=== PATIENT | male | born 1950 | race Caucasian/White ===

== ENCOUNTER 2019-10-06 12:12 | Emergency (ER) | payer MEDICARE, OTHER ==
[~2019-10-06] VITALS: Ht 185.4 cm; Wt 113.4 kg
--- OUTSIDE RECORDS SUMMARY | 2019-10-06 12:15 | XMS REPORT | Summary of Care ---
Author Author Tiffany Bunch M.A. Unknown Address Unknown Phone Unavailable Care Team Providers Care Kiss Setter Hand Name Role Phone LEVY RUTLEDGE M.D. Unavailable Unavailable ANGELA BAY MD Unavailable Unavailable Unavailable Unavailable Functional Status Name Dates Details Functional status health issues are not documented Status: Name Dates Details Cognitive status health issues are not documented Status: Problems Name Dates Details Hypertension (401.9, I10) Status: Active Limb swelling (729.81, M79.89) Status: Active Pain in both lower extremities (729.5, M79.604) Status: Active Medications Name Dates Details EpiPen 2-Mohinder NUZHAT Active Atorvastatin Calcium 40 MG Oral Tablet * Refills: 0 Active Pantoprazole Sodium 40 MG Oral Tablet Delayed Release * Refills: 0 Active valACYclovir HCl - 1 GM Oral Tablet TAKE 1 TABLET EVERY 12 HOURS DAILY. * Refills: 0 * Start : 12-Jun-2018 Active Probiotic Oral Capsule USE DIRECTED. * Refills: 0 * Start : 12-Jun-2018 Active Fexofenadine HCl - 60 MG Oral Tablet TAKE 1 TABLET DAILY. * Refills: 0 * Start : 12-Jun-2018 Active Aspirin 81 MG Oral Tablet Delayed Release TAKE 1 TABLET BY MOUTH EVERY DAY * Quantity: 90 Refills: 1 * Start : 12-Jun-2018 Active raNITIdine HCl - 150 MG Oral Capsule TAKE 1 CAPSULE EVERY 12 HOURS DAILY. * Quantity: 180 Refills: 3 * Start : 12-Jun-2018 Active Allergies and Adverse Reactions Name Dates Details Benadryl TABS (Allergy) Status: Active Past Medical History Name Dates Details Hypertension (401.9, I10) Status: Active History of gastroesophageal reflux (GERD) (V12.79, Z87.19) Status: Resolved Procedures Procedure Dates Details History of Emergency Tracheostomy Completed History of Gallbladder Surgery Completed History of Knee Surgery Left Completed History of Knee Surgery Right Completed History of Cath Stent Placement Completed Immunization Name Dates Details Immunizations not documented Family History Name Dates Details Family history of Cancer Comments: Family History Status: Active Social History Name Dates Details - Status: Name Dates Details Former smoker Vital Signs Date Test Result Details No Known Vitals to report Results Date Description Value Details Results not documented Plan of Care Name Dates Details Planned Observations Planned Goals not documented Planned Encounters Appointment; LEVY RUTLEDGE M.D. On: 12-Apr-2019 15:00 Interventions Provided Plan* CAD * - He refers prior stress test 2016 which apparently was negative * - Get records * CVI * - CEAP 4, venous US shows significant reflux left and right GSV/SSV, however symptoms are worse in left leg. HE has been wearing compression stockings with minimal improvement * - Willl schedule endovenous RFA starting left GSV, then left SSV. Then will schedule right GSV and finally right SSV. * - Risks, benefits and alternatives explained to the patient. He voices understanding and agrees to proceed. * - Continue compression stockings * Schedule procedure as above Discussion/Summary* Reviewed and discussed clinical cardiac findings and medications. * Venous US and echocardiogram results reviewed and discussed. Instructions Name Dates Details Instructions not documented Encounters Appointment; WANG DOLAN M.D. Encounter Diagnosis: Problem not documented On: 06-May-2017 14:45 Appointment; WANG DOLAN M.D. Encounter Diagnosis: Problem not documented On: 20-May-2017 15:30 Appointment; WANG DOLAN M.D. Encounter Diagnosis: Problem not documented On: 08-Sep-2017 15:15 Appointment; EARNESTINE DARNELL M.D. Encounter Diagnosis: Problem not documented On: 12-Jun-2018 14:30 Appointment; SE, ECHO Encounter Diagnosis: Problem not documented On: 14-Jun-2018 11:45 Appointment; SE, VENOUS Encounter Diagnosis: Problem not documented On: 14-Jun-2018 14:00 Appointment; EARNESTINE DARNELL M.D. Encounter Diagnosis: Problem not documented On: 26-Jun-2018 15:00 Appointment; EARNESTINE DARNELL M.D. Encounter Diagnosis: Problem not documented On: 03-Jul-2018 14:00 Appointment; SE, VENOUS Encounter Diagnosis: Problem not documented On: 14-Jul-2018 14:00 Appointment; SE, VENOUS Encounter Diagnosis: Problem not documented On: 19-Jul-2018 14:30 Appointment; SE, VENOUS Encounter Diagnosis: Problem not documented On: 21-Jul-2018 13:30 Appointment; SE, VENOUS Encounter Diagnosis: Problem not documented On: 26-Jul-2018 14:00 Appointment; LEVY RUTLEDGE M.D. Encounter Diagnosis: Problem not documented On: 12-Apr-2019 15:00
--- OUTSIDE RECORDS SUMMARY | 2019-10-06 12:15 | XMS REPORT ---
Author [facility] Address Unknown Phone Unavailable Care Team Providers Care Health Careers Instructor Name Role Phone Unavailable Unavailable Payers Payer Name Policy Type Policy Number Effective Date Expiration Date Problems This patient has no known problems. Allergies, Adverse Reactions, Alerts Allergy Name Allergy Type Status Severity Reaction(s) Onset Date Inactive Date Treating Clinician Comments diphenhydramine DA Active U 2019-01-15 00:00:00 Medications This patient has no known medications. Encounters Start Date/Time End Date/Time Encounter Type Admission Type Attending Clinicians Care Facility Care Department Encounter ID 2019-03-29 10:17:33 Outpatient [id number] 2019-03-30 07:08:00 2019-03-30 07:08:00 Outpatient [id number] Results Test Description Test Time Test Comments Text Results Atomic Results Result Comments - MRA LWR EXT W/CONT BI 2019-01-15 14:36:00 FAX: Sadie Garza MD [phone] Camps: PM St: REG FAX: Joe Curtis DO [phone] Name: DILSHAD COOK [facility] : 1950 Age/S: 68/M [address] [facility] [place] Unit #: [id number] Loc: [place] [address] Phys: Sadie Polanco MD Acct: [id number] Dis Date: Status: REG CLI PHONE #: [phone] Exam Date: 01/15/2019 0907 FAX #: Reason: PVD EXAMS: CPT: [id number] MRA LWR EXT W/[place] [id number] Site ID: [id number] EXAMINATION: - MRA LWR EXT W/CONT BI. Multiplanar multisequence MR artery of the abdomen and pelvis and bilateral lower extremities performed with MR artery angiography protocol. 30 mL of MultiHance is administered intravenously HISTORY: PVD. COMPARISON: None. FINDINGS: MRA abdomen pelvis: The abdominal aorta is normal in caliber with good opacification. No evidence of significant stenosis. The celiac trunk, the SMA and LOUISE are all patent. The renal arteries are patent. The common iliac, internal and external iliac arteries are all patent. Right lower extremity: The common femoral, profunda and superficial femoral arteries are all patent. The popliteal artery is partially excluded by artifacts from knee prosthesis but appears to be patent. The right anterior tibial, posterior tibial and peroneal arteries are all patent to the ankle level. Left lower extremity: The common femoral, profunda and superficial femoral arteries are patent. The popliteal artery is partially obscured by knee prosthesis but appears to be patent. The left anterior tibial, posterior tibial and peroneal arteries are patent to the ankle level. The vessels are not seen below the ankle level on this study. There are dilated superficial veins in the left leg more prominent than the right leg with a prominent presumably incompetent flare man on the left side located at about 13 cm above the ankle level. PAGE 1 Signed Report (CONTINUED) FAX: Sadie Garza MD [phone] Camps: PM St: REG FAX: Joe Curtis DO [phone] Name: DILSHAD COOK [facility] : 1950 Age/S: 68/M [address] [facility] Unit #: [id number] Loc: [place] [address] Phys: Sadie Polanco MD Acct: [id number] Dis Date: Status: REG CLI PHONE #: [phone] Exam Date: 01/15/2019 0907 FAX #: Reason: PVD EXAMS: CPT: [id number] MRA LWR EXT W/[place] [id number] <Continued> IMPRESSION: 1. No significant s tenosis identified in the aortoiliac, femoral or tibial arteries. 2. The popliteal arteries bilaterally are probably patent with no definitive abnormality. The mid popliteal artery is obscured however by artifacts related to knee prosthesis on both sides. Correlate with Doppler ultrasound which is the best modality to evaluate the popliteal arteries in the presence of knee prosthesis. 3. Dilated superficial veins in the lower legs more prominent on the left side with suggestion of an incompetent flare man at 13 cm above the ankle. at 1434 Reported and signed by: Robby Tapia MD CC: Sadie Polanco MD; Joe Moore DO Technologist: RT Lucio(R)(MR); ... Transcribed Date/Time/By: 01/15/2019 (5702) :[email or web address] Orig Print D/T: S: 01/15/2019 (2442) PAGE 2 Signed Report - MRA LWR EXT W/CONT BI 2019-01-15 14:36:00 FAX: Sadie Garza MD [phone] Camps: PM St: REG FAX: Joe Curtis DO [phone] [facility] 1950 Age/S: 68/M [address] [facility] Unit #: [id number] Loc: [place] [address] Phys: Sadie Polanco MD Acct: [id number] Dis Date: Status: REG CLI PHONE #: [phone] Exam Date: 01/15/2019 0907 FAX #: Reason: PVD EXAMS: CPT: [id number] MRA LWR EXT W/[place] [id number] Site ID: [id number] EXAMINATION: - MRA LWR EXT W/CONT BI. Multiplanar multisequence MR artery of the abdomen and pelvis and bilateral lower extremities performed with MR artery angiography protocol. 30 mL of MultiHance is administered intravenously HISTORY: PVD. COMPARISON: None. FINDINGS: MRA abdomen pelvis: The abdominal aorta is normal in caliber with good opacification. No evidence of significant stenosis. The celiac trunk, the SMA and LOUISE are all patent. The renal arteries are patent. The common iliac, internal and external iliac arteries are all patent. Right lower extremity: The common femoral, profunda and superficial femoral arteries are all patent. The popliteal artery is partially excluded by artifacts from knee prosthesis but appears to be patent. The right anterior tibial, posterior tibial and peroneal arteries are all patent to the ankle level. Left lower extremity: The common femoral, profunda and superficial femoral arteries are patent. The popliteal artery is partially obscured by knee prosthesis but appears to be patent. The left anterior tibial, posterior tibial and peroneal arteries are patent to the ankle level. The vessels are not seen below the ankle level on this study. There are dilated superficial veins in the left leg more prominent than the right leg with a prominent presumably incompetent flare man on the left side located at about 13 cm above the ankle level. PAGE 1 Signed Report (CONTINUED) FAX: Sadie Garza MD [phone] Camps: PM St: REG FAX: Joe Curtis DO [phone] Name: DILSHAD COOK : 1950 Age/S: 68/M [address] [address] [place] Unit #: [id number] Loc: [place] [address] Phys: Sadie Polanco MD Acct: [id number] Dis Date: Status: REG CLI PHONE #: [phone] Exam Date: 01/15/2019 09 FAX #: Reason: PVD EXAMS: CPT: [id number] MRA LWR EXT W/[place] [id number] <Continued> IMPRESSION: 1. No significant s tenosis identified in the aortoiliac, femoral or tibial arteries. 2. The popliteal arteries bilaterally are probably patent with no definitive abnormality. The mid popliteal artery is obscured however by artifacts related to knee prosthesis on both sides. Correlate with Doppler ultrasound which is the best modality to evaluate the popliteal arteries in the presence of knee prosthesis. 3. Dilated superficial veins in the lower legs more prominent on the left side with suggestion of an incompetent flare man at 13 cm above the ankle. at 1433 Reported and signed by: Robby Tapia MD CC: Sadie Polanco MD; Joe Moore DO Technologist: RT Lucio(R)(MR); ... Transcribed Date/Time/By: 01/15/2019 (0142) :DorisTZS Orig Print D/T: S: 01/15/2019 (5706) PAGE 2 Signed Report
[2019-10-06] MEDS: DIAZEPAM INJ 5 MG/ML 2 ML IV ONE (12:20)
[2019-10-06] MEDS ORDERED: DIAZEPAM INJ 5 MG/ML 2 ML ONE (12:37)
--- NOTE | 2019-10-06 12:55 | Diagnostic Imaging Report ---
EXAMINATION: CT of the abdomen and pelvis without contrast. TECHNIQUE: Helical CT images of the abdomen and pelvis were performed from the lung bases to the lesser trochanters. No intravenous contrast was given per renal stone protocol. Coronal and sagittal reformatted images were obtained. Dose modulation, iterative reconstruction, and/or weight based adjustment of the mA/kV was utilized to reduce the radiation dose to as low as reasonably achievable. COMPARISON: None. CLINICAL HISTORY:Abdominal pain DISCUSSION: ABSENCE OF INTRAVENOUS CONTRAST DECREASES SENSITIVITY FOR DETECTION OF FOCAL LESIONS AND VASCULAR PATHOLOGY. ABDOMEN/PELVIS: LOWER THORAX: Diaphragmatic pleural plaques. HEPATOBILIARY:No focal hepatic lesions. No biliary ductal dilation. Cholecystectomy. SPLEEN: No splenomegaly. PANCREAS: No focal masses or ductal dilatation. ADRENALS: No adrenal nodules. KIDNEYS/URETERS: No hydronephrosis, stones, or solid mass lesions. Left renal 5.2 cm exophytic cyst. PELVIC ORGANS/BLADDER: The bladder is normal. PERITONEUM/RETROPERITONEUM: No free air or fluid. LYMPH NODES: No intra-abdominal,retroperitoneal, pelvic or inguinal lymphadenopathy. VESSELS: Mild vascular calcifications. GI TRACT: Colonic diverticulosis without inflammatory change. BONES AND SOFT TISSUES: Anterior umbilical fat-containing hernia with neck 3.5 cm in maximum transverse dimension of the hernia 17 cm. IMPRESSION: No acute CT finding. Colonic diverticulosis without inflammatory change. Large umbilical fat-containing hernia. Signed by: Dr. Trevor Briscoe M.D. on 10/06/2019 12:53 PM
== END 2019-10-06 13:42 | disposition home or self-care (01) ==
LOC: FSED 12:12
DX: R10.33 Periumbilical pain (principal); R11.0 Nausea; K43.9 Ventral hernia without obstruction or gangrene; I10 Essential (primary) hypertension; E78.5 Hyperlipidemia, unspecified; I25.2 Old myocardial infarction; Z86.718 Personal history of other venous thrombosis and embolism
CPT/HCPCS: 36415; 74176; 83690; 85025; 93005; 99284; J3360

== ENCOUNTER 2019-10-14 03:25 | Emergency (ER) | payer MEDICARE ==
[~2019-10-14] VITALS: Ht 182.9 cm; Wt 113.4 kg
[2019-10-14] MEDS ORDERED: ONDANSETRON HCL INJ 2MG/ML 2ML 2 MG/ML VIAL IV STA (04:00)
[2019-10-14] MEDS ORDERED: SODIUM CHLORIDE 0.9% 1000ML 1,000 ML IV SCH (04:00)
[2019-10-14] MEDS ORDERED: MORPHINE SULFATE 2 MG/ML SYR 1ML IV STA ×2 (04:17→06:55)
[2019-10-14] MEDS ORDERED: FAMOTIDINE 20 MG/2 ML VIAL IV STA (04:17)
[2019-10-14] MEDS ORDERED: MORPHINE SULFATE INJ 4 MG/ML INJ 1ML ONE ×2 (04:36→07:02)
[2019-10-14] MEDS ORDERED: PROMETHAZINE HCL (IM) 25 MG/ML VIAL ONE (04:44)
[2019-10-14] MEDS ORDERED: PROMETHAZINE 25MG/ NS 50ML (IV) IV ONE (04:45)
--- NOTE | 2019-10-14 05:21 | Diagnostic Imaging Report ---
EXAM: CT Abdomen and Pelvis WITHOUT contrast INDICATION: Abdominal pain, nausea and vomiting. COMPARISON: 10/06/2019. TECHNIQUE: Abdomen and pelvis were scanned utilizing a multidetector helical scanner from the lung base to the pubic symphysis without administration of IV contrast. Absence of intravenous contrast decreases sensitivity for detection of focal lesions and vascular pathology. Coronal and sagittal reformations were obtained. Routine protocol was performed. IV CONTRAST: None. ORAL CONTRAST: None. RADIATION DOSE: Total DLP: 1336.85 mGy*cm Estimated effective dose: (DLP x 0.015 x size factor) mSv COMPLICATIONS: None FINDINGS: LINES and TUBES: None. LOWER THORAX: Unremarkable HEPATOBILIARY: No focal hepatic lesions. No biliary ductal dilation. GALLBLADDER: No radio-opaque stones or sludge. No wall thickening. SPLEEN: No splenomegaly. PANCREAS: No focal masses or ductal dilatation. ADRENALS: No adrenal nodules KIDNEYS/URETERS: No hydronephrosis. 5.6 cm cyst in the upper pole of the left kidney. No stones. GI TRACT: There has been interval development of marked wall thickening of the duodenum, particularly of the second and proximal third portions, with associated surrounding fat stranding; given the development since recent examination, this either represents severe duodenitis, however, intramural hemorrhage could also have this appearance. No bowel dilatation to suggest obstruction. The appendix is unremarkable. PELVIC ORGANS/BLADDER: Unremarkable. LYMPH NODES: No lymphadenopathy. VESSELS: There is mild atherosclerotic disease in the aorta and major arterial branches. PERITONEUM / RETROPERITONEUM: No free air or fluid. BONES: There are degenerative changes in the lumbar spine. SOFT TISSUES: Redemonstration of a large umbilical hernia with an aperture of 4.5 cm. It contains a large volume of mesenteric fat, and now it also contains a decompressed distal small bowel loop ( the latter a new finding since the prior exam). IMPRESSION: 1. Interval development of marked wall thickening of the duodenum, particularly of the second and proximal third portions, with associated surrounding fat stranding; given the development since recent examination, this either represents severe duodenitis versus intramural hemorrhage in the proper setting (anticoagulation; blunt trauma). 2. Redemonstration of a large umbilical hernia which contains a large volume of mesenteric fat, and now it also contains a decompressed distal small bowel loop without incarceration or obstruction. Signed by: Dr. New Smith M.D. on 10/14/2019 5:18 AM
[2019-10-14] MEDS ORDERED: PANTOPRAZOLE 40 MG 10ML VIAL IV STA (05:31)
[2019-10-14] MEDS ORDERED: PANTOPRAZOLE 40 MG 10ML VIAL ONE (05:37)
--- NOTE | 2019-10-14 05:41 | NUR ---
PT RESTING, STATES PAIN IS NOW 6/10 AND NO NAUSEA OR VOMITING AT THIS TIME.
--- NOTE | 2019-10-14 06:44 | NUR ---
[facility] NOTIFIED OF NEED FOR TRANSFER. ETA 30 MINUTES.
[2019-10-14 07:04] VITALS: BP 118/85
--- NOTE | 2019-10-14 07:55 | NUR ---
[facility] here to transport pt to [facility] via ambulance to room CVU 8 last set of VS are stable at 84, 18, 155/80, 100%, 12/13
== END 2019-10-14 07:55 | disposition short-term general hospital (02) ==
LOC: FSED 03:25
DX: R10.11 Right upper quadrant pain (principal); R11.2 Nausea with vomiting, unspecified; K29.80 Duodenitis without bleeding; I25.118 Atherosclerotic heart disease of native coronary artery with other forms of angina pectoris; K42.9 Umbilical hernia without obstruction or gangrene; I10 Essential (primary) hypertension; I51.9 Heart disease, unspecified; E78.5 Hyperlipidemia, unspecified; I25.2 Old myocardial infarction; Z87.19 Personal history of other diseases of the digestive system
CPT/HCPCS: 74176; 80048; 80076; 82553; 84484; 85025; 93005; 96374; 96375; 96376; 99284; C9113; J2270 ×2; J2405; J2550; J7030

== ENCOUNTER 2022-02-14 21:26 | Emergency (ER) | payer MEDICARE, OTHER ==
[~2022-02-14] VITALS: Ht 185.4 cm; Wt 112.0 kg
[2022-02-14] MEDS ORDERED: ONDANSETRON HCL INJ 2MG/ML 2ML 2 MG/ML VIAL IV STA ×2 (21:49→23:56)
[2022-02-14] MEDS ORDERED: Morphine 4mg Syringe 4 MG/ML INJ IV ONE (22:00)
[2022-02-14] MEDS ORDERED: ONDANSETRON HCL INJ 2MG/ML 2ML 2 MG/ML VIAL ONE (22:20)
[2022-02-14] MEDS ORDERED: Morphine 4mg Syringe 4 MG/ML INJ ONE (22:20)
[2022-02-15] MEDS ORDERED: Morphine 4mg Syringe 4 MG/ML INJ IV ONE
[2022-02-15] MEDS ORDERED: SODIUM CHLORIDE 0.9% 1000ML 1,000 ML IV SCH
[2022-02-15] MEDS ORDERED: ONDANSETRON HCL INJ 2MG/ML 2ML 2 MG/ML VIAL ONE (00:21)
[2022-02-15] MEDS ORDERED: Morphine 4mg Syringe 4 MG/ML INJ ONE (00:21)
[2022-02-15] MEDS ORDERED: SODIUM CHLORIDE 0.9% 1000ML 1,000 ML ONE (00:21)
[2022-02-15] MEDS ORDERED: PROMETHAZINE 25MG/ NS 50ML (IV) IV ONE (02:30)
[2022-02-15] MEDS ORDERED: SODIUM CHLORIDE 0.9% 100 ML ONE (02:43)
[2022-02-15] MEDS ORDERED: PROMETHAZINE HCL (IM) 25 MG/ML VIAL IM ONE (02:43)
[2022-02-15] MEDS ORDERED: FENTANYL CITRATE/PF 100MCG/2 ML INJ IV ONE (02:45)
[2022-02-15] MEDS ORDERED: FENTANYL CITRATE/PF 100MCG/2 ML INJ ONE (02:46)
== END 2022-02-15 02:45 | disposition other institution (70) ==
LOC: FSED 21:33
DX: R10.13 Epigastric pain (principal); I10 Essential (primary) hypertension; E78.5 Hyperlipidemia, unspecified; K21.9 Gastro-esophageal reflux disease without esophagitis; I25.2 Old myocardial infarction; Z95.5 Presence of coronary angioplasty implant and graft; Z20.822 Contact with and (suspected) exposure to COVID-19
CPT/HCPCS: 36415; 74176; 80048; 80076; 83690; 85025; 99284; J2270 ×2; J2405 ×2; J2550; J3010; J7030; J7050; U0002